=== PATIENT | female | born 1945 | race Caucasian/White ===

== ENCOUNTER → 2020-11-08 | Outpatient (CLI) | payer MEDICARE, OTHER ==
[~2020-11-08] VITALS: Ht 154.9 cm; Wt 53.5 kg
[~2020-11-08] MED LIST: OTC EYE VITAMIN PO; POLY17PO6 PO; ROSU5TAB13 PO
== END | disposition home or self-care (01) ==
LOC: PREOP 05:39
PROVIDERS: ATTEND Internal Medicine
DX: Z01.818 Encounter for other preprocedural examination (principal)

== ENCOUNTER 2020-11-09 09:41 | Day surgery (SDC) | payer MEDICARE, OTHER ==
--- NOTE | 2020-11-08 22:31 | HISTORY AND PHYSICAL ---
DATE OF SERVICE: COLONOSCOPY HISTORY AND PHYSICAL DATE OF ADMISSION: 11/09/2020 HISTORY OF PRESENT ILLNESS: The patient is a 75-year-old white female referred by Dr. Rika Feliz for screening colonoscopy. She reports one other colonoscopy a little over 10 years ago at which time no polyps were noted. She did have one grandfather in his 80s diagnosed with rectal cancer, she believes, but is not aware of any other family history for GI tract malignancy. She has noted no blood in her stool. Denies bowel habit change or abdominal pain. PAST MEDICAL HISTORY: Significant for hyperlipidemia with no known history of coronary artery disease, on statin therapy for primary prevention. Rosuvastatin is her only prescription medication, 5 mg daily. PAST SURGICAL HISTORY: She had transvaginal hysterectomy and oophorectomy many years ago and a bladder suspension. This was for benign reasons. FAMILY HISTORY: As noted in the HPI. SOCIAL HISTORY: She still works as a school nurse and has no past alcohol or tobacco history. REVIEW OF SYSTEMS: CONSTITUTIONAL: She denies change in weight, night sweats, chills or fever and is fully COVID vaccinated. GASTROINTESTINAL: As noted in the HPI. CARDIOVASCULAR: Denies chest pain, orthopnea, PND, pedal edema, syncope or presyncope. PULMONARY: Denies cough, wheezing or shortness of breath. PHYSICAL EXAMINATION: GENERAL: Reveals a fit-appearing white female, alert, well kempt, in no acute distress. VITAL SIGNS: Blood pressure 120/70 and weight is 119 pounds. HEENT: Unremarkable. CHEST: Clear to auscultation. CARDIOVASCULAR: Reveals a regular rate and rhythm without murmur, S3 or S4. ABDOMEN: Soft, supple without mass, organomegaly or tenderness. Bowel sounds positive. EXTREMITIES: Reveal no cyanosis, clubbing or edema. ASSESSMENT AND PLAN: The patient is set up for screening colonoscopy. Prep instructions with the Suprep kit were given and questions were answered. I thank you for the referral of this pleasant lady. Job ID: [id number] DocumentID: [id number] Dictated Date: 11/07/2020 15:41:29 Military Technician Date: 11/07/2020 15:51:50 Dictated By: ORALIA ADRIAN MD
[~2020-11-09] VITALS: Ht 154.9 cm; Wt 53.5 kg
[2020-11-09] MEDS ORDERED: LACTATED RINGERS 1,000 ML IV STA (09:50)
[2020-11-09] MEDS ORDERED: LIDOCAINE JELLY 2% 6 ML SYRINGE MM PRN (10:00)
[2020-11-09 10:15] VITALS: BP 134/77
--- NOTE | 2020-11-09 10:37 | Pre-Op Note & Conscious Sedat ---
Pre-Operative Progress Note H&P Reviewed The H&P was reviewed, patient examined and no changes noted. Date H&P Reviewed: November 09, 2020 Time H&P Reviewed: 10:37 Conscious Sedation Pre-Proced ASA Score 2 For ASA 3 and 4: Consider anesthesia and medical clearance. Also, for patients with a history of failed moderate sedation consider anesthesia. Airway Lungs Heart ASA score ASA 1: a normal healthy patient ASA 2: a patient with a mild systemic disease (mid diabetes, controlled hypertension, obesity ASA 3: a patient with a severe systemic disease that limits activity (angina, COPD, prior Myocardial infarction) ASA 4: a patient with an incapacitating disease that is a constant threat to life (CHF, renal failure) ASA 5: a moribund patient not expected to survive 24 hrs. (ruptured aneurysm) ASA 6: a declared brain- patient whose organs are being harvested. For emergent operations, add the letter E after the classification Mallampati Classification Grade 2 Sedation Plan Analgesia, Amnesia, Plan communicated to team members, Discussed options with patient/fam, Discussed risks with patient/fam The patient is an appropriate candidate to undergo the planned procedure, sedation, and anesthesia. The patient immediately re-assessed prior to indication. ORALIA ADRIAN MD November 09, 2020 10:37
[2020-11-09] MEDS ORDERED: PROPOFOL INJECTION 50 ML IV ONE (10:56)
[2020-11-09] MEDS ORDERED: LIDOCAINE JELLY 2% 6 ML SYRINGE ONE (11:13)
[2020-11-09 11:55] VITALS: BP 112/65
[2020-11-09 11:58] VITALS: BP 105/47
[2020-11-09 12:15] VITALS: BP 117/66
[2020-11-09 12:35] VITALS: BP 117/66
--- NOTE | 2020-11-09 14:28 | Anesthesia-General Post-Op ---
MAC Patient Condition Mental Status/LOC: Same as Preop Cardiovascular: Satisfactory Nausea/Vomiting: Absent Respiratory: Satisfactory Pain: Controlled Complications: Absent Post Op Complications Complications None Follow Up Care/Instructions Patient Instructions None needed. Anesthesiology Discharge Order Discharge Order Patient is doing well, no complaints, stable vital signs, no apparent adverse anesthesia problems. No complications reported per nursing. FELIPA LEO CRNA November 09, 2020 14:28
--- NOTE | 2020-11-09 18:38 | OPERATIVE REPORT ---
DATE OF SERVICE: COLONOSCOPY SUMMARY INDICATION FOR THE PROCEDURE: Screening. DESCRIPTION OF PROCEDURE: The patient was placed in the left lateral decubitus position. Prior to undergoing colonoscopy, digital rectal evaluation was performed. Anal sphincter tone was normal and the perianal reflexes intact. No abnormalities were noted on digital inspection of the anal canal or distal rectal vault. The colonoscope was inserted into the rectum and under direct visualization advanced to the cecum. The cecum was identified by identification of the ileocecal valve and cecal strap. Photographic documentation was obtained. Careful inspection was made as the colonoscope was withdrawn. FINDINGS: There was no evidence for internal or external hemorrhoids and the rectum, sigmoid colon, descending colon, transverse colon, ascending colon and cecum were unremarkable. ASSESSMENT: No evidence for neoplasia or diverticular disease was noted on today's procedure. Quality of the prep was good. Considering the patient's age and reported lack of family history of colon cancer, we would not advocate future screening colonoscopy. I thank you for the referral of this pleasant lady. Job ID: [id number] DocumentID: [id number] Dictated Date: 11/09/2020 12:10:23 Roll Up Guider Operator Date: 11/09/2020 16:09:13 Dictated By: ORALIA ADRIAN MD
== END 2020-11-09 12:36 | disposition home or self-care (01) ==
LOC: ENDO 09:41
PROVIDERS: ATTEND Internal Medicine
DX: Z12.11 Encounter for screening for malignant neoplasm of colon (principal); Z80.0 Family history of malignant neoplasm of digestive organs; E78.5 Hyperlipidemia, unspecified; Z79.899 Other long term (current) drug therapy; Z90.710 Acquired absence of both cervix and uterus